=== PATIENT | male | born 1990 | race African-American/Black ===

== ENCOUNTER 2021-05-24 18:39 | Emergency (ER) | payer OTHER ==
[~2021-05-24] VITALS: Ht 188 cm; Wt 90.7 kg
[2021-05-24] MEDS ORDERED: LORAZEPAM 1 MG TABLET PO ONE (19:00)
[2021-05-24] MEDS ORDERED: LORAZEPAM 1 MG TABLET ONE (19:47)
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
[2021-05-24 19:58] LABS: ALANINE AMINOTRANSFERASE 29 U/L (12-78); ALKALINE PHOSPHATASE 42 U/L (46-116); ASPARTATE AMINOTRANSFERASE 23 U/L (15-37); BILIRUBIN,DIRECT 0.1 mg/dL (0.0-0.2); BILIRUBIN,TOTAL 0.2 mg/dL (0.2-1.0); CARBON DIOXIDE 25 mmol/L (21-32); CHLORIDE 101 mmol/L (98-107); CREATININE 1.6 mg/dL (0.6-1.3); GLUCOSE 194 mg/dL (74-106); POTASSIUM 2.9 mmol/L (3.5-5.1); SODIUM SERUM 139 mmol/L (136-145); TOTAL PROTEIN, SERUM 7.5 g/dL (6.4-8.2); UREA NITROGEN, BLOOD 10 mg/dL (7-18)
[2021-05-24 20:00] LABS: BASOPHILS % (AUTO) 0.1 % (0.0-2.0); HEMATOCRIT 43 % (39-51); HEMOGLOBIN 14.1 g/dL (13.5-17.5); LYMPHOCYTES # (AUTO) 1.6 K/uL (0.8-4.8); LYMPHOCYTES % (AUTO) 14.4 % (20.0-44.0); MEAN CORPUSCULAR HGB CONC 33 g/dl (31.0-36.0); MEAN CORPUSCULAR VOLUME 89 fL (80-96); MONOCYTES # (AUTO) 0.8 K/uL (0.1-1.30); MONOCYTES % (AUTO) 7.4 % (2.0-12.0); NEUTROPHILS # (AUTO) 8.7 K/uL (1.8-8.9); NEUTROPHILS % (AUTO) 78.1 % (43.0-81.0); PLATELET COUNT (AUTO) 272 K/uL (150-450); RED BLOOD CELL COUNT(AUTO) 4.83 MIL/uL (4.5-6.0); WHITE BLOOD COUNT (AUTO) 11.1 K/uL (4.3-11.0)
[2021-05-24 20:03] LABS: ACETAMINOPHEN < 0 ug/ml (10-30); ALCOHOL, BLOOD < 3 mg/dL (0-0)
--- NOTE | 2021-05-24 20:19 | NUR ---
CALLED SECURITY FOR CLOTHING
--- NOTE | 2021-05-24 20:32 | NUR ---
A, OX4. AMBULATORY W. STEADY GAITS. DENIED SI/HI. STABLE FOR D/C PER MD. PT PROVIDED W/ PROPER CLOTHES.
--- NOTE | 2021-05-24 20:34 | NUR ---
Patient discharged to home in stable condition. Written and verbal after care instructions given. Patient verbalizes understanding of instruction.
[2021-05-24 21:19] VITALS: BP 147/85
== END 2021-05-24 20:35 | disposition home or self-care (01) ==
LOC: ER 18:50
DX: R41.0 Disorientation, unspecified (principal); Z59.00 Homelessness unspecified
CPT/HCPCS: 36415; 80048-TC; 80076-TC; 85025-TC; G0480